=== PATIENT | female | born 1995 | race Caucasian/White ===

== ENCOUNTER 2020-06-13 19:10 | Inpatient (IN) | payer OTHER ==
[~2020-06-13] VITALS: Ht 154.9 cm; Wt 60.3 kg
[2020-06-13] MEDS ORDERED: PRENATAL TABLE1 EAC1 PO (20:29)
== END 2020-06-14 11:19 | disposition home or self-care (01) | DRG 776 ==
LOC: LDR 19:10
PROVIDERS: ADMIT Obstetrics & Gynecology; ATTEND Obstetrics & Gynecology
DX: Z39.0 Encounter for care and examination of mother immediately after delivery (principal); Z37.1 Single stillbirth

== ENCOUNTER 2021-05-06 13:33 | Day surgery (SDC) | payer OTHER ==
[~2021-05-06 13:33] MED LIST: PRENATAL TABLE1 EAC1 PO
== END 2021-05-06 22:15 | disposition home or self-care (01) ==
LOC: CIR.AMB 13:33
PROVIDERS: ATTEND Obstetrics & Gynecology
DX: O02.1 Missed abortion (principal); Z20.822 Contact with and (suspected) exposure to COVID-19